=== PATIENT | male | born 1980 | race Caucasian/White ===

== ENCOUNTER 2016-11-07 20:23 | Emergency (ER) | payer SELFPAY ==
[~2016-11-07] VITALS: Ht 167.6 cm; Wt 113.6 kg
[2016-11-07] MEDS ORDERED: DiphenhydrAMINE HCL 25 MG CAPSULE PO ONE (21:15)
[2016-11-07] MEDS ORDERED: PredniSONE 20 MG TABLET PO ONE (21:15)
[2016-11-07 21:35] VITALS: BP 130/81
== END 2016-11-07 21:36 | disposition home or self-care (01) ==
LOC: EMS 20:24
DX: R21 Rash and other nonspecific skin eruption (principal)
CPT/HCPCS: 99283; J7512